=== PATIENT | male | born 1970 | race Two or more races ===

== ENCOUNTER → 2017-05-28 | Outpatient (REF) | payer BC, SELFPAY ==
[2017-05-28 17:24] LABS: ALBUMIN 3.8 GM/DL (3.2-5.2); ALBUMIN/GLOBULIN RATIO 1.12 (1.00-1.93); ALKALINE PHOSPHATASE 71 U/L (45-117); ALT/SGPT 63 U/L (12-78); ANION GAP 4 MEQ/L (8-16); AST/SGOT 29 U/L (15-37); BILIRUBIN,TOTAL 0.9 MG/DL (0.2-1.0); BLOOD UREA NITROGEN 17 MG/DL (7-18); CARBON DIOXIDE LEVEL 33 MEQ/L (21-32); CHLORIDE LEVEL 100 MEQ/L (98-107); CREATININE FOR GFR 0.86 MG/DL (0.70-1.30); FERRITIN 21 NG/ML (26-388); GLOMERULAR FILTRATION RATE > 60.0 (>60); GLUCOSE, FASTING 180 MG/DL (70-105); MAGNESIUM LEVEL 1.7 MG/DL (1.8-2.4); PERCENT SATURATION 18.7 % (19.7-50.0); POTASSIUM SERUM 4.1 MEQ/L (3.5-5.1); SODIUM LEVEL 137 MEQ/L (136-145); TOTAL IRON BINDING CAPACITY 315 UG/DL (250-450); TOTAL PROTEIN 7.2 GM/DL (6.4-8.2)
[2017-05-28 17:26] LABS: VITAMIN B12 LEVEL 425 PG/ML (247-911)
[2017-05-28 17:33] LABS: INR 0.94
[2017-05-28 18:05] LABS: BASO % 0.5 % (0.0-1.0); EOS # 0.2 10^3/uL (0.0-0.50); EOS % 2.4 % (0.0-3.0); IMMATURE GRANULOCYTE % 0.2 % (0-0); LYMPH % 23.5 % (24.0-44.0); MEAN CORPUSCULAR HEMOGLOBIN 29.4 pg (27.0-33.0); MEAN CORPUSCULAR HGB CONC 33.4 g/dl (32.0-36.5); MEAN CORPUSCULAR VOLUME 88.1 fl (80.0-96.0); MONO # 0.6 10^3/uL (0.0-0.8); MONO % 6.9 % (0.0-5.0); NEUTROPHILS # 5.5 10^3/uL (1.8-7.7); NEUTROPHILS % 66.5 % (36.0-66.0); PLATELET COUNT, AUTOMATED 219 10^3/uL (150-450); RED CELL DISTRIBUTION WIDTH 12.1 % (11.5-14.5); WHITE BLOOD COUNT 8.3 10^3/uL (4.0-10.0)
[2017-05-28 18:35] LABS: ADD MORPHOLOGY? NO
== END ==
LOC: M SFHCPLAZ 15:28
PROVIDERS: ATTEND Family Medicine
DX: E83.110 Hereditary hemochromatosis (principal); I10 Essential (primary) hypertension; E11.9 Type 2 diabetes mellitus without complications

== ENCOUNTER → 2017-07-18 | Outpatient (REF) | payer BC ==
[2017-07-18 18:59] LABS: BASO % 0.6 % (0.0-1.0); EOS # 0.2 10^3/uL (0.0-0.50); EOS % 2.5 % (0.0-3.0); IMMATURE GRANULOCYTE % 0.3 % (0-0); LYMPH # 1.5 10^3/uL (1.5-4.5); LYMPH % 22.3 % (24.0-44.0); MEAN CORPUSCULAR HEMOGLOBIN 29.6 pg (27.0-33.0); MEAN CORPUSCULAR HGB CONC 32.3 g/dl (32.0-36.5); MEAN CORPUSCULAR VOLUME 91.5 fl (80.0-96.0); MONO # 0.5 10^3/uL (0.0-0.8); MONO % 7.1 % (0.0-5.0); NEUTROPHILS # 4.6 10^3/uL (1.8-7.7); NEUTROPHILS % 67.2 % (36.0-66.0); PLATELET COUNT, AUTOMATED 223 10^3/uL (150-450); RED CELL DISTRIBUTION WIDTH 11.9 % (11.5-14.5); WHITE BLOOD COUNT 6.9 10^3/uL (4.0-10.0)
[2017-07-18 19:24] LABS: ALBUMIN 3.8 GM/DL (3.2-5.2); ALKALINE PHOSPHATASE 84 U/L (45-117); ALT/SGPT 73 U/L (12-78); ANION GAP 8 MEQ/L (8-16); AST/SGOT 33 U/L (7-37); BILIRUBIN,TOTAL 1.3 MG/DL (0.2-1.0); BLOOD UREA NITROGEN 19 MG/DL (7-18); CALCIUM LEVEL 9.2 MG/DL (8.5-10.1); CARBON DIOXIDE LEVEL 30 MEQ/L (21-32); CHLORIDE LEVEL 102 MEQ/L (98-107); CREATININE FOR GFR 0.94 MG/DL (0.70-1.30); FERRITIN 21 NG/ML (26-388); GLOMERULAR FILTRATION RATE > 60.0 (>60); GLUCOSE, FASTING 167 MG/DL (70-105); PERCENT SATURATION 30.9 % (19.7-50.0); POTASSIUM SERUM 4.4 MEQ/L (3.5-5.1); SODIUM LEVEL 140 MEQ/L (136-145); TOTAL IRON BINDING CAPACITY 288 UG/DL (250-450); TOTAL PROTEIN 7.6 GM/DL (6.4-8.2)
== END ==
LOC: M SFHCPLAZ 09:50
PROVIDERS: ATTEND Family Medicine
DX: E83.110 Hereditary hemochromatosis (principal)

== ENCOUNTER → 2017-11-26 | Outpatient (REF) | payer BC ==
[2017-11-26 12:10] LABS: BASO # 0.1 10^3/uL (0.0-0.2); BASO % 0.8 % (0.0-1.0); EOS # 0.3 10^3/uL (0.0-0.50); EOS % 5.4 % (0.0-3.0); HEMATOCRIT 42.7 % (42.0-52.0); HEMOGLOBIN 14.1 g/dl (14.0-18.0); IMMATURE GRANULOCYTE % 0.3 % (0-3.0); LYMPH # 1.8 10^3/uL (1.5-4.5); LYMPH % 27.6 % (24.0-44.0); MEAN CORPUSCULAR HEMOGLOBIN 28.4 pg (27.0-33.0); MEAN CORPUSCULAR VOLUME 86.1 fl (80.0-96.0); MONO # 0.5 10^3/uL (0.0-0.8); MONO % 8.5 % (0.0-5.0); NEUTROPHILS # 3.7 10^3/uL (1.8-7.7); NEUTROPHILS % 57.4 % (36.0-66.0); PLATELET COUNT, AUTOMATED 139 10^3/uL (150-450); RED BLOOD COUNT 4.96 10^6/uL (4.30-6.10); RED CELL DISTRIBUTION WIDTH 12.1 % (11.5-14.5); WHITE BLOOD COUNT 6.4 10^3/uL (4.0-10.0)
[2017-11-26 12:34] LABS: PTH INTACT 38.8 PG/ML (18.5-88.0); TOTAL 25(OH) VITAMIN D 20.4 NG/ML (30.0-100.0)
[2017-11-26 12:55] LABS: ALKALINE PHOSPHATASE 79 U/L (45-117); ALT/SGPT 72 U/L (12-78); AST/SGOT 38 U/L (7-37); BILIRUBIN,TOTAL 0.8 MG/DL (0.2-1.0); BLOOD UREA NITROGEN 19 MG/DL (7-18); CARBON DIOXIDE LEVEL 27 MEQ/L (21-32); CHLORIDE LEVEL 103 MEQ/L (98-107); CHOLESTEROL LEVEL 161 MG/DL (<200); CPK CREATINE PHOSPHOKINASE 103 U/L (39-308); CREATININE FOR GFR 1.01 MG/DL (0.70-1.30); FERRITIN 27 NG/ML (26-388); FREE T4 0.92 NG/DL (0.76-1.46); GLUCOSE, FASTING 196 MG/DL (70-100); IRON (FE) 64 UG/DL (65-175); SODIUM LEVEL 139 MEQ/L (136-145); TOTAL PROTEIN 7.5 GM/DL (6.4-8.2); TRIGLYCERIDES LEVEL 96 MG/DL (<150)
[2017-11-26 22:39] LABS: ALBUMIN 3.9 GM/DL (3.2-5.2); ALBUMIN/GLOBULIN RATIO 1.08 (1.00-1.93); ANION GAP 9 MEQ/L (8-16)
[2017-11-26 22:40] LABS: CHOLESTEROL RISK RATIO 4.128 (<5); HDL CHOLESTEROL 39 MG/DL (>40); LDL CHOLESTEROL 102.8 MG/DL (<100); NON-HDL-C 122 MG/DL; PERCENT SATURATION 22.2 % (19.7-50.0); TOTAL IRON BINDING CAPACITY 288 UG/DL (250-450)
== END ==
LOC: M SFHCPLAZ 08:03
DX: E83.110 Hereditary hemochromatosis (principal); E78.2 Mixed hyperlipidemia; E55.9 Vitamin D deficiency, unspecified
CPT/HCPCS: 82550

== ENCOUNTER → 2018-04-23 | Outpatient (REF) | payer BC ==
[2018-04-23 11:40] LABS: FERRITIN 24 NG/ML (26-388)
== END ==
LOC: M SFHCPLAZ 08:50
DX: E11.9 Type 2 diabetes mellitus without complications (principal); E83.110 Hereditary hemochromatosis
CPT/HCPCS: 82728

== ENCOUNTER → 2018-06-05 | Outpatient (CLI) | payer BC ==
[2018-06-05 09:34] LABS: BASO % 0.7 % (0.0-1.0); EOS # 0.4 10^3/uL (0.0-0.50); EOS % 7.6 % (0.0-3.0); HEMATOCRIT 40.4 % (42.0-52.0); HEMOGLOBIN 13.9 g/dl (13.5-17.5); IMMATURE GRANULOCYTE % 0.2 % (0-3.0); LYMPH # 1.6 10^3/uL (1.5-4.5); LYMPH % 27.4 % (24.0-44.0); MEAN CORPUSCULAR HEMOGLOBIN 30.5 pg (27.0-33.0); MEAN CORPUSCULAR HGB CONC 34.4 g/dl (32.0-36.5); MEAN CORPUSCULAR VOLUME 88.6 fl (80.0-96.0); MONO # 0.4 10^3/uL (0.0-0.8); MONO % 7.2 % (0.0-5.0); NEUTROPHILS # 3.2 10^3/uL (1.8-7.7); NEUTROPHILS % 56.9 % (36.0-66.0); PLATELET COUNT, AUTOMATED 159 10^3/uL (150-450); RED BLOOD COUNT 4.56 10^6/uL (4.30-6.10); RED CELL DISTRIBUTION WIDTH 11.6 % (11.5-14.5); WHITE BLOOD COUNT 5.7 10^3/uL (4.0-10.0)
[2018-06-05 10:06] LABS: ALBUMIN 3.8 GM/DL (3.2-5.2); ALBUMIN/GLOBULIN RATIO 1.12 (1.00-1.93); ALKALINE PHOSPHATASE 79 U/L (45-117); ALT/SGPT 47 U/L (12-78); ANION GAP 4 MEQ/L (8-16); AST/SGOT 23 U/L (7-37); BILIRUBIN,TOTAL 0.9 MG/DL (0.2-1.0); BLOOD UREA NITROGEN 13 MG/DL (7-18); C REACTIVE PROTEIN QUANTITATIV < 0.30 MG/DL (0.00-0.30); CARBON DIOXIDE LEVEL 31 MEQ/L (21-32); CHLORIDE LEVEL 105 MEQ/L (98-107); CHOLESTEROL LEVEL 128 MG/DL (<200); CHOLESTEROL RISK RATIO 3.368 (<5); CPK CREATINE PHOSPHOKINASE 115 U/L (39-308); CREATININE FOR GFR 0.92 MG/DL (0.70-1.30); FERRITIN 32 NG/ML (26-388); FREE T4 0.94 NG/DL (0.76-1.46); GLOMERULAR FILTRATION RATE > 60.0 (>60); GLUCOSE, FASTING 171 MG/DL (70-100); HDL CHOLESTEROL 38 MG/DL (>40); IRON (FE) 76 UG/DL (65-175); LDL CHOLESTEROL 69 MG/DL (<100); NON-HDL-C 90 MG/DL; PERCENT SATURATION 28.3 % (19.7-50.0); POTASSIUM SERUM 4.3 MEQ/L (3.5-5.1); SODIUM LEVEL 140 MEQ/L (136-145); THYROID STIMULATING HORMONE 0.824 uIU/ML (0.358-3.740); TOTAL IRON BINDING CAPACITY 269 UG/DL (250-450); TOTAL PROTEIN 7.2 GM/DL (6.4-8.2); TRIGLYCERIDES LEVEL 107 MG/DL (<150)
[2018-06-07 11:21] LABS: TOTAL 25(OH) VITAMIN D 31.1 NG/ML (30.0-100.0)
[2018-06-07 11:22] LABS: PTH INTACT 38.1 PG/ML (18.5-88.0)
== END ==
LOC: M LAB 08:52
DX: E83.110 Hereditary hemochromatosis (principal); E78.2 Mixed hyperlipidemia
CPT/HCPCS: 82550

== ENCOUNTER → 2018-10-29 | Outpatient (REF) | payer OTHER ==
[2018-10-29 12:28] LABS: APPEARANCE, URINE CLEAR (CLEAR); BACTERIA, URINE AUTO NEGATIVE (NEGATIVE); BILIRUBIN, URINE AUTO NEGATIVE (NEGATIVE); BLOOD, URINE BLOOD NEGATIVE (NEGATIVE); COLOR, URINE YELLOW (YELLOW); GLUCOSE, URINE (UA) AUTO NEGATIVE (NEGATIVE); KETONE, URINE AUTO NEGATIVE (NEGATIVE); LEUKOCYTE ESTERASE, URINE AUTO NEGATIVE (NEGATIVE); MUCUS, URINE SMALL (NEGATIVE); NITRITE, URINE AUTO NEGATIVE (NEGATIVE); PROTEIN, URINE AUTO NEGATIVE (NEGATIVE); RBC, URINE AUTO 1 /HPF (0-3); SPECIFIC GRAVITY URINE AUTO 1.017 (1.002-1.035); SQUAMOUS EPITHELIAL CELL UR AU 0 /HPF (0-6); UROBILINOGEN, URINE AUTO 0.2 mg/dL (0.0-2.0); WBC, URINE AUTO 0 /HPF (0-3)
[2018-10-29 12:41] LABS: INR 0.95; PARTIAL THROMBOPLASTIN TIME 28.2 SECONDS (25.4-37.6); PROTHROMBIN TIME 12.8 SECONDS (12.1-14.4)
[2018-10-29 13:01] LABS: ALBUMIN 4.1 GM/DL (3.2-5.2); ALT/SGPT 47 U/L (12-78); BILIRUBIN,TOTAL 1.2 MG/DL (0.2-1.0); BLOOD UREA NITROGEN 17 MG/DL (7-18); CALCIUM LEVEL 9.4 MG/DL (8.5-10.1); CARBON DIOXIDE LEVEL 28 MEQ/L (21-32); CHLORIDE LEVEL 101 MEQ/L (98-107); CREATININE FOR GFR 0.88 MG/DL (0.70-1.30); GLOMERULAR FILTRATION RATE > 60.0 (>60); GLUCOSE, FASTING 107 MG/DL (70-100); MAGNESIUM LEVEL 1.9 MG/DL (1.8-2.4); POTASSIUM SERUM 4.1 MEQ/L (3.5-5.1); SODIUM LEVEL 139 MEQ/L (136-145); TOTAL PROTEIN 7.7 GM/DL (6.4-8.2); VITAMIN B12 LEVEL 610 PG/ML (247-911)
[2018-10-29 13:16] LABS: HEMOGLOBIN A1c 6.1 %
== END ==
LOC: M SFHCPLAZ 09:11
PROVIDERS: ATTEND Family Medicine
DX: E83.110 Hereditary hemochromatosis (principal); I10 Essential (primary) hypertension; E11.9 Type 2 diabetes mellitus without complications

== ENCOUNTER 2018-12-01 06:00 | Day surgery (SDC) | payer OTHER ==
[~2018-12-01] VITALS: Ht 176.5 cm; Wt 103.0 kg
[~2018-12-01 06:00] MED LIST: ASPI1TAB PO; ATOR80TA59 PO; FLUO40CA PO; GLYB5TA PO; JANU100T PO; LISI20TA3 PO; METF10004 PO; MOME50SP; VITA100067 PO
[2018-12-01] MEDS ORDERED: LIDOCAINE 2% W/EPIN INJ 20ML **PRES FREE As Ordered ONE (06:37)
[2018-12-01] MEDS ORDERED: POVIDONE-IODINE 5% OPHTH PREP SOL 30ML As Ordered ONE (06:37)
[2018-12-01] MEDS ORDERED: ERYTHROMYCIN OPHTH OINT As Ordered ONE (06:37)
[2018-12-01] MEDS ORDERED: LR 1,000 ML IV ONE (07:00)
[2018-12-01] MEDS ORDERED: LIDOCAINE 3.5 % 1ML OPHTH TOPICAL GEL OU ONE (07:00)
[2018-12-01] MEDS ORDERED: MIDAZOLAM INJ 2 MG/2 ML VIAL (J2250) As Ordered ONE (07:11)
[2018-12-01] MEDS ORDERED: fentaNYL 100 MCG/2 ML INJECTION (J3010) As Ordered ONE (07:11)
[2018-12-01] MEDS ORDERED: PROPOFOL 200 MG/20 ML VIAL As Ordered ONE (07:11)
[2018-12-01] MEDS ORDERED: LIDOCAINE 2% INJ 100 MG/5 ML SDV (FOR ANES.) As Ordered ONE (07:11)
[2018-12-01 08:18] VITALS: BP 119/72
--- NOTE | 2018-12-01 16:13 | RO ---
DATE OF PROCEDURE: 12/01/2018 PREOPERATIVE DIAGNOSIS: Three small papillomatous lesions right lower lid, not involving the lid margin. POSTOPERATIVE DIAGNOSIS: Three small papillomatous lesions right lower lid, not involving the lid margin, status post simple excision. PROCEDURE: SURGEON: Drew Garzon Jr., DO, FACS [employer] COORDINATOR: ANESTHESIA: Local 2% lidocaine with epinephrine, and sedation by anesthesia. ESTIMATED BLOOD LOSS: Minimal. COMPLICATIONS: None. PROCEDURE IN DETAIL: This gentleman is very anxious. He was brought to [facility] so I had good anesthesia to sedate him to allow the excision of these three small, less than 7 mm, large papillomatous lesions of his right lower lid. After obtaining informed consent, the patient was taken to the operating room where a time-out was performed confirming the correct patient and operative site. The anesthesiologist gave some sedation and the lesions were injected with 2% lidocaine with epinephrine and excised simply with scissors and cautery was applied to the wounds. Antibiotic ointment was applied to the wounds and the patient returned to recovery area in excellent condition. He will followup in the office.
== END 2018-12-01 08:18 | disposition home or self-care (01) ==
LOC: M SDC 06:00
PROVIDERS: ATTEND Ophthalmology
DX: D23.111 Other benign neoplasm of skin of right upper eyelid, including canthus (principal); I10 Essential (primary) hypertension; E11.9 Type 2 diabetes mellitus without complications; E83.110 Hereditary hemochromatosis; E78.2 Mixed hyperlipidemia; R06.83 Snoring; G47.33 Obstructive sleep apnea (adult) (pediatric); B35.6 Tinea cruris; F32.9 Major depressive disorder, single episode, unspecified; M17.0 Bilateral primary osteoarthritis of knee; J30.89 Other allergic rhinitis; E55.9 Vitamin D deficiency, unspecified; K76.0 Fatty (change of) liver, not elsewhere classified; E80.4 Gilbert syndrome; Z88.1 Allergy status to other antibiotic agents; Z91.013 Allergy to seafood; Z79.899 Other long term (current) drug therapy; Z79.82 Long term (current) use of aspirin; Z79.84 Long term (current) use of oral hypoglycemic drugs
CPT/HCPCS: 11441; 88305; J2250; J3010

== ENCOUNTER → 2018-12-27 | Outpatient (CLI) | payer OTHER ==
[~2018-12-27] MED LIST changes: -ASPI1TAB PO; +ASPI81TA26 PO
--- NOTE | 2018-12-27 08:05 | REP ---
Clinical: Hemochromatosis. Comparison: 09/09/2017. Technique: Real time carney scale ultrasound examination using curved array transducer. Findings: The liver demonstrates mild diffuse fatty infiltration without focal hepatic lesion identified or evidence for hepatomegaly. The pancreas is incompletely evaluated due to interposed bowel gas but the visualized portions appear normal. Gallbladder and biliary system are unremarkable. No gallstones, wall thickening, or pericholecystic fluid is appreciated. The common bile duct measures 2.2 mm diameter. The right kidney is normal in reniform shape without hydronephrosis and measures 10.8 x 6.3 x 6.4 cm. No ascites. Impression: Hepatosteatosis. Electronically Signed by Jeremie Dooley MD 12/27/2018 07:56 A
== END ==
LOC: M RAD 07:10
PROVIDERS: ATTEND Family Medicine
DX: E83.110 Hereditary hemochromatosis (principal); K76.0 Fatty (change of) liver, not elsewhere classified

== ENCOUNTER → 2019-04-21 | Outpatient (REF) | payer OTHER ==
[~2019-04-21] MED LIST changes: +LISI20TA20 PO; -LISI20TA3 PO
[2019-04-21 12:05] LABS: APPEARANCE, URINE CLEAR (CLEAR); BACTERIA, URINE AUTO NEGATIVE (NEGATIVE); BILIRUBIN, URINE AUTO NEGATIVE (NEGATIVE); BLOOD, URINE BLOOD NEGATIVE (NEGATIVE); COLOR, URINE YELLOW (YELLOW); GLUCOSE, URINE (UA) AUTO NEGATIVE (NEGATIVE); KETONE, URINE AUTO NEGATIVE (NEGATIVE); LEUKOCYTE ESTERASE, URINE AUTO NEGATIVE (NEGATIVE); MUCUS, URINE SMALL (NEGATIVE); NITRITE, URINE AUTO NEGATIVE (NEGATIVE); PROTEIN, URINE AUTO NEGATIVE (NEGATIVE); RBC, URINE AUTO 2 /HPF (0-3); SPECIFIC GRAVITY URINE AUTO 1.021 (1.002-1.035); SQUAMOUS EPITHELIAL CELL UR AU 0 /HPF (0-6); UROBILINOGEN, URINE AUTO 0.2 mg/dL (0.0-2.0); WBC, URINE AUTO 1 /HPF (0-3)
[2019-04-21 12:07] LABS: BASO # 0.1 10^3/uL (0.0-0.2); BASO % 0.9 % (0.0-1.0); EOS # 0.3 10^3/uL (0.0-0.50); EOS % 5.8 % (0.0-3.0); HEMATOCRIT 42.3 % (42.0-52.0); HEMOGLOBIN 14.4 g/dl (13.5-17.5); LYMPH # 1.5 10^3/uL (1.5-4.5); LYMPH % 27.9 % (24.0-44.0); MEAN CORPUSCULAR HEMOGLOBIN 31.6 pg (27.0-33.0); MEAN CORPUSCULAR VOLUME 92.8 fl (80.0-96.0); MONO # 0.5 10^3/uL (0.0-0.8); MONO % 9.3 % (0.0-5.0); NEUTROPHILS % 55.9 % (36.0-66.0); PLATELET COUNT, AUTOMATED 168 10^3/uL (150-450); RED BLOOD COUNT 4.56 10^6/uL (4.30-6.10); WHITE BLOOD COUNT 5.4 10^3/uL (4.0-10.0)
[2019-04-21 12:43] LABS: BILIRUBIN,DIRECT 0.2 MG/DL (0.0-0.2); CHOLESTEROL RISK RATIO 3.5 (<5); FREE T4 0.95 NG/DL (0.76-1.46); PERCENT SATURATION 34.3 % (19.7-50.0); THYROID STIMULATING HORMONE 1.31 uIU/ML (0.358-3.740)
[2019-04-21 12:48] LABS: MALB URINE SIEMENS 10.4 MG/L; MAU/CREAT RATIO 6.9 MCG/MG (0.0-30.0)
[2019-04-21 13:15] LABS: HEMOGLOBIN A1c 7.5 %
== END ==
LOC: M SFHCPLAZ 08:43
PROVIDERS: ATTEND Family Medicine
DX: Z12.5 Encounter for screening for malignant neoplasm of prostate (principal); E80.4 Gilbert syndrome; E83.110 Hereditary hemochromatosis; E11.9 Type 2 diabetes mellitus without complications

== ENCOUNTER → 2019-05-23 | Outpatient (REF) | payer OTHER ==
[2019-05-23 16:35] LABS: C REACTIVE PROTEIN QUANTITATIV < 0.30 MG/DL (0.00-0.30); CPK CREATINE PHOSPHOKINASE 138 U/L (39-308); MAGNESIUM LEVEL 1.7 MG/DL (1.8-2.4); RHEUMATOID FACTOR QUANT < 10.0 IU/ML (<15.0)
[2019-05-23 16:49] LABS: BASO % 0.5 % (0.0-1.0); EOS # 0.2 10^3/uL (0.0-0.5); HEMATOCRIT 45.5 % (42.0-52.0); HEMOGLOBIN 15.8 g/dl (13.5-17.5); LYMPH # 1.7 10^3/uL (1.5-5.0); LYMPH % 21.5 % (24.0-44.0); MEAN CORPUSCULAR HEMOGLOBIN 31.9 pg (27.0-33.0); MEAN CORPUSCULAR HGB CONC 34.7 g/dl (32.0-36.5); MEAN CORPUSCULAR VOLUME 91.9 fl (80.0-96.0); MONO # 0.7 10^3/uL (0.0-0.8); MONO % 8.1 % (0.0-5.0); NEUTROPHILS # 5.4 10^3/uL (1.5-8.5); NEUTROPHILS % 66.7 % (36.0-66.0); PLATELET COUNT, AUTOMATED 216 10^3/uL (150-450); RED BLOOD COUNT 4.95 10^6/uL (4.30-6.10); WHITE BLOOD COUNT 8.1 10^3/uL (4.0-10.0)
[2019-05-23 17:32] LABS: ERYTHROCYTE SEDIMENTATION RATE 26 mm/hr (0-15)
[2019-05-24 10:22] LABS: DRVV SCREEN 37.9 SEC; PTT LUPUS TYPE ANTICOAG SCREEN 0.9 (0-1.2)
[2019-05-26 00:08] LABS: CYCLIC CITRULLINATED PEPTIDE 7 units (0-19); Lyme Disease IgG/IgM Antibodie <0.91 ISR (0.00-0.90); Lyme Disease IgM Ab Quantitati <0.80 index (0.00-0.79)
== END ==
LOC: M SFHCPLAZ 12:11
PROVIDERS: ATTEND Physician Assistant Medical
DX: M79.10 Myalgia, unspecified site (principal); M25.561 Pain in right knee

== ENCOUNTER → 2019-06-22 | Outpatient (CLI) | payer OTHER ==
--- NOTE | 2019-06-23 19:09 | SLEEPHOME ---
DATE OF PROCEDURE: 06/22/2019 ORDERED BY: Vane Chapman home sleep testing was performed due to concern for the obstructive sleep apnea syndrome. For testing a Nox T3 respiratory monitoring system was used. Continuous record made of pulse, oxygen saturation, airflow, chest, abdominal strain and body position. 11 hours and 5 minutes of data were reviewed. There were 5 hours and 29 minutes marked as time in bed. During the interval marked time in bed, there were 41 respiratory events identified of 10 seconds in duration or greater for a respiratory event index of 7.5. The events were primarily obstructive hypopneas. Baseline pulse rate and saturation data were lost as the probe became dislodged early in the study. Testing was performed in both the supine and nonsupine positions. IMPRESSION: Abnormal home sleep testing with repetitive respiratory events and a respiratory event index of 7.5 is consistent with the obstructive sleep apnea syndrome. RECOMMENDATIONS: As the events identified were associated with the supine posture, sleep position retraining for avoidance of the supine posture may be sufficient. If sleep symptoms persist, the patient should be referred for a formal sleep evaluation.
== END ==
LOC: M SLEEP HO 10:29
PROVIDERS: ATTEND Physician Assistant Medical
DX: G47.33 Obstructive sleep apnea (adult) (pediatric) (principal)

== ENCOUNTER → 2019-09-19 | Outpatient (CLI) | payer OTHER ==
[2019-09-19 13:40] LABS: BASO % 0.6 % (0.0-1.0); EOS # 0.3 10^3/uL (0.0-0.5); EOS % 4.6 % (0.0-3.0); HEMATOCRIT 46.3 % (42.0-52.0); HEMOGLOBIN 15.4 g/dl (13.5-17.5); LYMPH # 1.7 10^3/uL (1.5-5.0); MEAN CORPUSCULAR HEMOGLOBIN 30.9 pg (27.0-33.0); MEAN CORPUSCULAR HGB CONC 33.3 g/dl (32.0-36.5); MONO # 0.6 10^3/uL (0.0-0.8); MONO % 8.3 % (0.0-5.0); NEUTROPHILS # 4.1 10^3/uL (1.5-8.5); NEUTROPHILS % 61.2 % (36.0-66.0); PLATELET COUNT, AUTOMATED 196 10^3/uL (150-450); RED BLOOD COUNT 4.98 10^6/uL (4.30-6.10); WHITE BLOOD COUNT 6.8 10^3/uL (4.0-10.0)
[2019-09-19 14:13] LABS: ALBUMIN 3.9 GM/DL (3.2-5.2); ALT/SGPT 79 U/L (12-78); BILIRUBIN,TOTAL 1.4 MG/DL (0.2-1.0); BLOOD UREA NITROGEN 14 MG/DL (7-18); CALCIUM LEVEL 9.5 MG/DL (8.5-10.1); CARBON DIOXIDE LEVEL 29 MEQ/L (21-32); CHLORIDE LEVEL 103 MEQ/L (98-107); CREATININE FOR GFR 1.02 MG/DL (0.70-1.30); FERRITIN 44 NG/ML (26-388); GLOMERULAR FILTRATION RATE > 60.0 (>60); GLUCOSE, FASTING 168 MG/DL (70-100); POTASSIUM SERUM 4.6 MEQ/L (3.5-5.1); SODIUM LEVEL 138 MEQ/L (136-145); TOTAL PROTEIN 7.6 GM/DL (6.4-8.2)
[2019-09-19 14:30] LABS: HEMOGLOBIN A1c 7.5 %
== END ==
LOC: M PLALAB 09:48
PROVIDERS: ATTEND Family Medicine
DX: E11.9 Type 2 diabetes mellitus without complications (principal)

== ENCOUNTER → 2019-09-23 | Outpatient (CLI) | payer OTHER ==
[2019-09-23 13:46] LABS: HEMATOCRIT 46.6 % (42.0-52.0)
[2019-09-23 14:00] LABS: INR 0.99; PROTHROMBIN TIME 12.8 SECONDS (11.8-14.0)
[2019-09-23 14:01] LABS: PARTIAL THROMBOPLASTIN TIME 27.6 SECONDS (25.0-38.4)
[2019-09-23 14:20] LABS: ALBUMIN 4.4 GM/DL (3.2-5.2); BLOOD UREA NITROGEN 19 MG/DL (7-18); C REACTIVE PROTEIN QUANTITATIV < 0.30 MG/DL (0.00-0.30); CALCIUM LEVEL 9.5 MG/DL (8.5-10.1); CARBON DIOXIDE LEVEL 31 MEQ/L (21-32); CHLORIDE LEVEL 97 MEQ/L (98-107); CPK CREATINE PHOSPHOKINASE 173 U/L (39-308); CREATININE FOR GFR 1.04 MG/DL (0.70-1.30); GLOMERULAR FILTRATION RATE > 60.0 (>60); GLUCOSE, FASTING 278 MG/DL (70-100); MAGNESIUM LEVEL 1.7 MG/DL (1.8-2.4); PHOSPHORUS LEVEL 2.6 MG/DL (2.5-4.9); POTASSIUM SERUM 3.9 MEQ/L (3.5-5.1); SODIUM LEVEL 133 MEQ/L (136-145)
[2019-09-23 14:29] LABS: VITAMIN B12 LEVEL 421 PG/ML (247-911)
== END ==
LOC: M PLALAB 09:52
PROVIDERS: ATTEND Family Medicine
DX: K76.0 Fatty (change of) liver, not elsewhere classified (principal); R20.3 Hyperesthesia

== ENCOUNTER → 2019-10-05 | Outpatient (CLI) | payer OTHER ==
[~2019-10-05] MED LIST changes: +PROHANCE 279.3MG/ML 15ML VIAL (A9576) As Ordered ONE; +PROHANCE 279.3MG/ML 5ML VIAL (A9576) As Ordered ONE
--- NOTE | 2019-10-05 19:24 | REPVR ---
PROCEDURE INFORMATION: Exam: MR Head Without and With Contrast Exam date and time: 10/05/2019 10:30 AM Age: 48 years old Clinical indication: Other: Involuntary movements; Additional info: Hyperesthesia TECHNIQUE: Imaging protocol: MR of the head without and with intravenous contrast. Contrast material: PROHANCE; Contrast volume: 20 ml; Contrast route: IV; COMPARISON: No relevant prior studies available. FINDINGS: Brain: Increased signal intensity is identified on diffusion involving the right cerebellar tonsil. No abnormal signal intensity is identified on the remaining sequences, suggestive of artifact. There is no definitive restricted diffusion within the brain to suggest an acute infarct. There are scattered foci of FLAIR hyperintensity within the cerebral white matter. There is no mass effect or restricted diffusion associated with these foci. This white matter disease is nonspecific as to etiology. Possible etiologies include chronic small vessel ischemic disease, foci of demyelination, post-traumatic change, and migraine headaches, as well as additional infectious, inflammatory and autoimmune etiologies. No abnormally enhancing intracranial mass is visualized. No cerebral edema. Ventricles: No ventriculomegaly. Bones/joints: Unremarkable, as visualized. Soft tissues: There is a linear focus of hypointensity within the right posterior scalp, suggestive of scar tissue. Sinuses: Mild mucosal thickening of the bilateral maxillary sinuses, with mucous retention cysts or polyps in the left maxillary sinus. Minimal mucosal thickening of the sphenoid sinuses and ethmoid air cells bilaterally. Mastoid air cells: Minimal complex effusions within the mastoid air cells bilaterally. Orbits: No acute abnormality visualized. IMPRESSION: 1. There is no definitive restricted diffusion within the brain to suggest an acute infarct. 2. There are scattered foci of FLAIR hyperintensity within the cerebral white matter. This white matter disease is nonspecific as to etiology, as detailed above. 3. Paranasal sinus disease. 4. Additional findings described above. Electronically signed by: Filemon Lee On 10/05/2019 19:23:44 PM
== END ==
LOC: M RAD 09:09
PROVIDERS: ATTEND Family Medicine
DX: R20.3 Hyperesthesia (principal)
CPT/HCPCS: 70553; A9576

== ENCOUNTER → 2019-10-11 | Outpatient (REF) | payer OTHER ==
[~2019-10-11] MED LIST changes: -PROHANCE 279.3MG/ML 15ML VIAL (A9576) As Ordered ONE; -PROHANCE 279.3MG/ML 5ML VIAL (A9576) As Ordered ONE
[2019-10-11 14:44] LABS: RHEUMATOID FACTOR QUANT < 10.0 IU/ML (<15.0); TOTAL PROTEIN 7.7 GM/DL (6.4-8.2)
[2019-10-11 14:52] LABS: TOTAL 25(OH) VITAMIN D 37.4 NG/ML (30.0-100.0)
[2019-10-13 11:58] LABS: ALBUMIN 4.47 GM/DL (3.29-5.55); ALBUMIN % 58.1 % (55.8-66.1); ALPHA-1-GLOBULIN % 3.9 % (2.9-4.9); ALPHA-2-GLOBULINS 0.84 GM/DL (0.42-0.99); ALPHA-2-GLOBULINS % 10.9 % (7.1-11.8); BETA-1-GLOBULINS 0.49 GM/DL (0.28-0.60); BETA-1-GLOBULINS % 6.4 % (4.7-7.2); BETA-2-GLOBULINS 0.47 GM/DL (0.19-0.55); BETA-2-GLOBULINS % 6.1 % (3.2-6.5); GAMMA GLOBULIN % 14.6 % (11.1-18.8); GAMMA GLOBULINS 1.12 GM/DL (0.65-1.58)
== END ==
LOC: M LABNEURO 09:45
PROVIDERS: ATTEND Psychiatry & Neurology Neurology
DX: G62.9 Polyneuropathy, unspecified (principal); G35 Multiple sclerosis

== ENCOUNTER → 2019-10-13 | Outpatient (REF) | payer OTHER ==
[2019-10-13 18:06] LABS: BLOOD UREA NITROGEN 21 MG/DL (7-18); CREATININE FOR GFR 1.13 MG/DL (0.70-1.30); GLOMERULAR FILTRATION RATE > 60.0 (>60)
== END ==
LOC: M LABNEURO 16:56
PROVIDERS: ATTEND Psychiatry & Neurology Neurology
DX: I10 Essential (primary) hypertension (principal)

== ENCOUNTER 2019-10-19 17:47 | Emergency (ER) | payer OTHER ==
[~2019-10-19] VITALS: Ht 175.3 cm; Wt 108.1 kg
[2019-10-19] MEDS ORDERED: GABA-843 PO (18:00)
[2019-10-19] MEDS ORDERED: MAGN400T3 PO (18:00)
[2019-10-19] MEDS ORDERED: ALOG25TA PO (18:01)
[2019-10-19 18:57] LABS: BASO # 0.1 10^3/uL (0.0-0.2); BASO % 0.7 % (0.0-1.0); EOS # 0.4 10^3/uL (0.0-0.5); EOS % 4.8 % (0.0-3.0); HEMATOCRIT 43.6 % (42.0-52.0); HEMOGLOBIN 15.3 g/dl (13.5-17.5); LYMPH # 2.6 10^3/uL (1.5-5.0); LYMPH % 32.4 % (24.0-44.0); MEAN CORPUSCULAR HGB CONC 35.1 g/dl (32.0-36.5); MEAN CORPUSCULAR VOLUME 88.3 fl (80.0-96.0); MONO # 0.6 10^3/uL (0.0-0.8); MONO % 7.6 % (0.0-5.0); NEUTROPHILS # 4.4 10^3/uL (1.5-8.5); NEUTROPHILS % 54.3 % (36.0-66.0); PLATELET COUNT, AUTOMATED 219 10^3/uL (150-450); RED BLOOD COUNT 4.94 10^6/uL (4.30-6.10); WHITE BLOOD COUNT 8.1 10^3/uL (4.0-10.0)
[2019-10-19 19:19] LABS: BLOOD UREA NITROGEN 14 MG/DL (7-18); CALCIUM LEVEL 9.5 MG/DL (8.5-10.1); CARBON DIOXIDE LEVEL 29 MEQ/L (21-32); CHLORIDE LEVEL 102 MEQ/L (98-107); CREATININE FOR GFR 0.91 MG/DL (0.70-1.30); GLOMERULAR FILTRATION RATE > 60.0 (>60); GLUCOSE, FASTING 167 MG/DL (70-100); POTASSIUM SERUM 3.8 MEQ/L (3.5-5.1); SODIUM LEVEL 136 MEQ/L (136-145)
[2019-10-19 20:45] VITALS: BP 142/83
--- NOTE | 2019-10-20 09:52 | CR ---
DATE OF CONSULTATION: 10/19/2019 INDICATION: Leg weakness and thoracic disc herniation. HISTORY OF PRESENT ILLNESS: Higinio Lara is a 48-year-old gentleman that was sent to the emergency department tonight by his neurologist. He is being worked up for multiple sclerosis. However, recent MRI supposedly shows a thoracic disc herniation. The patient did bring a disc. The images were unfortunate available, neither was the report. The emergency room (ER) physician discussed the case with me and I agree to perform a consultation. So in talking to the patient he states that he had started having some numbness, tingling in his legs and some balance issues in the summer of 2018. Since May, symptoms have worsened. The numbness, tingling is now extending down distally. The patient specifically denies any urine or bowel incontinence. Denies saddle anesthesia. For the patient's full past medical history, past surgical history, medications, allergies, social history and review of systems please see the ER intake form. Physical exam reveals a gentleman in no distress. Alert and oriented times three. He is pleasant to talk to. Cardiovascular: 2+ PT pulse. Pulmonary: Nonlabored breathing. Musculoskeletal: Patient has 5/5 EHL, FHL, TA, GS and hip flexors. The patient reports mild paresthesias but still intact sensation to light touch in L2-S1 dermatomes. Intact at least 1+ Achilles reflexes. IMAGING STUDIES: The patient had a disc that had an MRI of his cervical spine and thoracic spine from [facility]. Images were not available, though for review, neither was the report. ASSESSMENT/PLAN: Higinio Lara is a 48-year-old gentleman who supposedly has a thoracic spine herniation. He has numbness and tingling in his lower extremities but no weakness. At this point, there is a discussion between the patient, ER physician and myself about whether the patient should be admitted. Certainly, that decision would be up to the ER physician, However from an orthopedic spine standpoint, if there were a large thoracic disc herniation one would expect significant weakness in the lower extremities. There are no signs and symptoms of cauda equina syndrome. So from the orthopedic spine standpoint, there is no indication for admission. However, ultimate decision on whether to admit or at discharge for outpatient followup will be up to the ER physician. I was not involved in the conversation between the neurologist and the ER physician. The patient can definitely be seen at the [facility] office. He can see Jeovanny or Chris, two of our physicians assistants and they can review the imaging, perform further evaluation and make further recommendations. Should the patient experience any progressive numbness, tingling, urine or bowel incontinence, he must immediately return to the ER.
== END 2019-10-19 20:48 | disposition home or self-care (01) ==
LOC: M ED 17:47
DX: M51.34 Other intervertebral disc degeneration, thoracic region (principal); E11.9 Type 2 diabetes mellitus without complications; I10 Essential (primary) hypertension; E78.5 Hyperlipidemia, unspecified; D33.2 Benign neoplasm of brain, unspecified; Z88.8 Allergy status to other drugs, medicaments and biological substances; Z91.013 Allergy to seafood; Z79.82 Long term (current) use of aspirin; Z79.84 Long term (current) use of oral hypoglycemic drugs; Z79.899 Other long term (current) drug therapy

== ENCOUNTER → 2020-02-02 | Outpatient (REF) | payer OTHER ==
[~2020-02-02] MED LIST changes: +ALOG25TA PO; +GABA-843 PO; +MAGN400T3 PO
[2020-02-02 12:15] LABS: ALBUMIN 3.5 GM/DL (3.2-5.2); ALT/SGPT 68 U/L (12-78); BASO # 0.1 10^3/uL (0.0-0.2); BASO % 1.1 % (0.0-1.0); BILIRUBIN,TOTAL 1.1 MG/DL (0.2-1.0); BLOOD UREA NITROGEN 14 MG/DL (7-18); CARBON DIOXIDE LEVEL 30 MEQ/L (21-32); CHLORIDE LEVEL 103 MEQ/L (98-107); CHOLESTEROL LEVEL 131 MG/DL (<200); CHOLESTEROL RISK RATIO 4.093 (<5); CREATININE FOR GFR 0.91 MG/DL (0.70-1.30); EOS # 0.2 10^3/uL (0.0-0.5); FERRITIN 29 NG/ML (26-388); GLOMERULAR FILTRATION RATE > 60.0 (>56); GLUCOSE, FASTING 184 MG/DL (70-100); HDL CHOLESTEROL 32 MG/DL (>40); HEMATOCRIT 41.5 % (42.0-52.0); HEMOGLOBIN 14.2 g/dl (13.5-17.5); LDL CHOLESTEROL 80 MG/DL (<100); LYMPH # 1.8 10^3/uL (1.5-5.0); LYMPH % 32.5 % (24.0-44.0); MEAN CORPUSCULAR HGB CONC 34.2 g/dl (32.0-36.5); MEAN CORPUSCULAR VOLUME 90.6 fl (80.0-96.0); MONO # 0.5 10^3/uL (0.0-0.8); MONO % 8.9 % (0.0-5.0); NEUTROPHILS % 53.3 % (36.0-66.0); NON-HDL-C 99 MG/DL; PLATELET COUNT, AUTOMATED 184 10^3/uL (150-450); POTASSIUM SERUM 4.2 MEQ/L (3.5-5.1); RED BLOOD COUNT 4.58 10^6/uL (4.30-6.10); SODIUM LEVEL 140 MEQ/L (136-145); TOTAL PROTEIN 6.9 GM/DL (6.4-8.2); TRIGLYCERIDES LEVEL 97 MG/DL (<150); WHITE BLOOD COUNT 5.5 10^3/uL (4.0-10.0)
[2020-02-02 12:20] LABS: TOTAL 25(OH) VITAMIN D 43.2 NG/ML (30.0-100.0)
[2020-02-02 13:08] LABS: HEMOGLOBIN A1c 8.4 %
== END ==
LOC: M PLALAB 08:23
PROVIDERS: ATTEND Family Medicine
DX: E11.9 Type 2 diabetes mellitus without complications (principal); Z12.5 Encounter for screening for malignant neoplasm of prostate; E55.9 Vitamin D deficiency, unspecified

== ENCOUNTER → 2020-02-17 | Outpatient (CLI) | payer OTHER ==
[~2020-02-17] MED LIST changes: +GABA-282 PO; -GABA-843 PO; -GLYB5TA PO; +GLYB5TAB6 PO
--- NOTE | 2020-02-18 06:57 | EEG ---
DATE OF PROCEDURE: 02/17/2020 DIAGNOSIS: Myoclonus. EEG #: [id number] REFERRING PHYSICIAN: Dr. Marco Wilburn HISTORY: The patient is a 49-year-old male with episodes of spontaneous frequent muscle and body twitching for 1 year. He is currently taking aspirin, metformin, glimepiride, Prozac, etc. TECHNICAL DESCRIPTION This digital EEG was recorded by 21 scalp, ear and two EKG electrodes and was reviewed in bipolar and referential montages following reformatting in 10-20 international electrode placement system. INTERPRETATION: The patient was noted to be in awake and drowsy states during this EEG. Resting awake background rhythm consisted of well-formed posterior dominant rhythm with anterior/posterior gradient comprising of 10 Hz alpha activity measuring 15-40 microvolts in amplitude which was symmetric and reactive to eye opening. Attenuation of posterior dominant rhythm was seen during transition into drowsiness. No sleep was achieved. Hyperventilation with good effort elicited mild theta slowing of background rhythm. Photic stimulation at 3-30 Hz elicited symmetric photic driving, especially at mid frequencies bilaterally. No focal, lateralizing or epileptiform abnormalities were seen. No relevant clinical activity was noted. EKG revealed normal sinus rhythm. CONCLUSION: This EEG in awake and drowsy states is within normal limits.
== END ==
LOC: M SLEEP 08:08
PROVIDERS: ATTEND Family Medicine
DX: G25.3 Myoclonus (principal)

== ENCOUNTER → 2020-05-04 | Outpatient (CLI) | payer OTHER ==
[~2020-05-04] MED LIST changes: -GABA-282 PO; +GABA-843 PO; +GLYB5TA PO; -GLYB5TAB6 PO
--- NOTE | 2020-05-11 14:18 | SLEEPCENT ---
DATE: 05/04/2020 ORDERED BY: FAUSTO Gonzales Nocturnal polysomnography was performed for evaluation of sleep physiology in this patient with a history of extensive somnolence and nonrestorative sleep. There was 8 hours and 58 minutes of data reviewed. There were 406.5 minutes of sleep identified. Sleep latency was prolonged at 53.5 minutes. REM latency was prolonged at 136.5 minutes. Sleep architecture showed fragmentation. There were 2 REM cycles noted. Overall sleep efficiency was 77.1%. The electrocardiogram showed a sinus rhythm with an average heart rate of 64 beats per minute. EEG showed normal waveforms for wake and sleep. There were 79 respiratory events identified of 10 seconds in duration or greater for an apnea-hypopnea index of 11.7. The events were primarily obstructive, not exclusive to sleep stage nor body posture. Arousals from respiratory events occurred 12 times per hour, and oxygen desaturations were seen below 90%. There was minimal limb activity appreciated. IMPRESSION: Obstructive sleep apnea syndrome (G47.33). Apnea-hypopnea index is 11.7. RECOMMENDATION: The patient should be encouraged to return to the sleep disorder center for pressure therapy. In the interim, alcohol and sedative avoidance should be practiced and caution exercised during the operation of motor vehicles. DEE DEED
== END ==
LOC: M SLEEP 20:00
PROVIDERS: ATTEND Nurse Practitioner Family
DX: G47.33 Obstructive sleep apnea (adult) (pediatric) (principal)

== ENCOUNTER → 2020-08-03 | Outpatient (CLI) | payer SELFPAY | LOC: M LABSMTC 14:50 | PROVIDERS: ATTEND Pediatrics | DX: Z20.828 Contact with and (suspected) exposure to other viral communicable diseases (principal) ==

== ENCOUNTER → 2020-08-08 | Outpatient (CLI) | payer OTHER ==
[2020-08-08 13:53] LABS: BASO # 0.1 10^3/uL (0.0-0.2); BASO % 0.9 % (0.0-1.0); EOS # 0.2 10^3/uL (0.0-0.5); EOS % 2.2 % (0.0-3.0); HEMATOCRIT 44.1 % (42.0-52.0); LYMPH # 1.9 10^3/uL (1.5-5.0); MEAN CORPUSCULAR HEMOGLOBIN 30.4 pg (27.0-33.0); MEAN CORPUSCULAR VOLUME 89.5 fl (80.0-96.0); MONO # 0.5 10^3/uL (0.0-0.8); MONO % 7.8 % (0.0-5.0); NEUTROPHILS # 4.1 10^3/uL (1.5-8.5); NEUTROPHILS % 60.8 % (36.0-66.0); PLATELET COUNT, AUTOMATED 233 10^3/uL (150-450); RED BLOOD COUNT 4.93 10^6/uL (4.30-6.10); WHITE BLOOD COUNT 6.7 10^3/uL (4.0-10.0)
[2020-08-08 14:03] LABS: INR 0.99; PROTHROMBIN TIME 13.3 SECONDS (12.5-14.3)
[2020-08-08 14:04] LABS: PARTIAL THROMBOPLASTIN TIME 27.1 SECONDS (24.2-38.5)
[2020-08-08 14:15] LABS: HEMOGLOBIN A1c 8.5 %
[2020-08-08 14:25] LABS: CHOLESTEROL LEVEL 147 MG/DL (<200); FERRITIN 59 NG/ML (26-388); HDL CHOLESTEROL 35 MG/DL (>40); IRON (FE) 128 UG/DL (65-175); LDL CHOLESTEROL 94 MG/DL (<100); NON-HDL-C 112 MG/DL; PERCENT SATURATION 39.9 % (19.7-50.0); TOTAL IRON BINDING CAPACITY 321 UG/DL (250-450); TRIGLYCERIDES LEVEL 89 MG/DL (<150)
[2020-08-08 14:31] LABS: TOTAL 25(OH) VITAMIN D 126.6 NG/ML (30.0-100.0)
[2020-08-11 06:08] LABS: INSULIN LEVEL 29.9 uIU/mL (2.6-24.9)
== END ==
LOC: M PLALAB 09:54
PROVIDERS: ATTEND Family Medicine
DX: E11.9 Type 2 diabetes mellitus without complications (principal); E55.9 Vitamin D deficiency, unspecified; E83.110 Hereditary hemochromatosis

== ENCOUNTER → 2020-09-04 | Outpatient (CLI) | payer OTHER ==
--- NOTE | 2020-09-04 09:25 | REP ---
INDICATION: HEREDITARY HEMOCHROMATOSIS COMPARISON: 12/27/2018 TECHNIQUE: Real time B-mode carney scale ultrasound examination using curved array transducer. FINDINGS: Liver demonstrates coarsened mildly hyperechoic echotexture similar to prior examination and without focal hepatic lesion identified. Pancreas is incompletely evaluated due to interposed bowel gas but visualized portions appear normal. The spleen is unremarkable and measures 12 x 7 x 5 cm. Gallbladder demonstrates multiple gallstones without wall thickening or pericholecystic fluid. No biliary ductal dilatation is appreciated and the common bile duct measures 3.8 mm diameter. The bilateral kidneys are normal in reniform shape without hydronephrosis. Right kidney measures 11.6 x 5.8 x 6.6 cm. Left kidney measures 12.0 x 5.6 x 6.7 cm. The abdominal aorta appears normal and measures 2.8 cm maximal diameter. No ascites noted in the visualized abdomen. IMPRESSION: 1. Hepatocellular disease and hepatosteatosis without focal hepatic lesion identified. 2. Cholelithiasis. <Electronically signed by Jeremie Dooley > 09/04/20 0921
== END ==
LOC: M RAD 08:07
PROVIDERS: ATTEND Family Medicine
DX: E83.110 Hereditary hemochromatosis (principal); K76.0 Fatty (change of) liver, not elsewhere classified; K80.20 Calculus of gallbladder without cholecystitis without obstruction

== ENCOUNTER → 2020-10-17 | Outpatient (CLI) | payer OTHER ==
[~2020-10-17] MED LIST changes: +GABA-282 PO; -GABA-843 PO; -GLYB5TA PO; +GLYB5TAB6 PO; +PROHANCE 279.3MG/ML 15ML VIAL As Ordered ONE; +PROHANCE 279.3MG/ML 5ML VIAL As Ordered ONE
--- NOTE | 2020-10-17 09:52 | REP ---
INDICATION: MIGRAINE. Chronic migraine. COMPARISON: Comparison MRI study October 05, 2019.. TECHNIQUE: Axial and sagittal imaging planes are utilized for T1 and T2-weighted scans. Sequences include spin-echo, fast spin echo, FLAIR, and diffusion weighted sequences. 20 mL of intravenous ProHance is administered and postcontrast axial T1, sagittal T1, and coronal T1 weighted images are obtained. FINDINGS: No bony calvarial lesion is seen. Craniocervical junction upper cervical cord are unremarkable. There are small mucous retention cysts in the maxillary sinuses bilaterally and there are some mucosal changes in the ethmoid air cells bilaterally. These findings are similar to the prior study. No intraorbital abnormality is seen. Diffusion-weighted scans show no evidence of restricted diffusion to suggest acute ischemia. Hunter-white differentiation pattern is intact. Lateral, 3rd, and 4th ventricles are normal in size and position. On T2 weighted scans, there are mild scattered subcortical foci of T2 hyperintensity. These are nonspecific. Most likely they represent small-vessel micro ischemic changes. The can be seen in association with migraine as well. Demyelinating disease is felt to be unlikely given the pattern. These are unchanged from the October 05, 2019 study. There is no evidence of intracranial mass lesion. There is no evidence of hemorrhage infarct or extra-axial fluid collection. No midline shift is seen. Postcontrast images show enhancement of normal vascular structures. No abnormal intracranial contrast enhancement is seen. IMPRESSION: Mild stable small-vessel changes. Mild paranasal sinus mucosal changes again seen. No acute intracranial abnormality. <Electronically signed by Arjun Lange > 10/17/20 0948
== END ==
LOC: M RAD 07:50
DX: G43.709 Chronic migraine without aura, not intractable, without status migrainosus (principal)
CPT/HCPCS: 70553; A9576

== ENCOUNTER → 2020-11-07 | Outpatient (CLI) | payer OTHER ==
[~2020-11-07] MED LIST changes: -PROHANCE 279.3MG/ML 15ML VIAL As Ordered ONE; -PROHANCE 279.3MG/ML 5ML VIAL As Ordered ONE
--- NOTE | 2020-11-07 17:21 | REP ---
INDICATION: VISION LOSS COMPARISON: None. TECHNIQUE: Real-time ultrasound evaluation and duplex Doppler interrogation of the extracranial carotid vasculature is performed. FINDINGS: Antegrade flow is observed in both vertebral arteries. Right carotid: Right common carotid artery is unremarkable. There is no significant plaquing in the bulb, proximal ICA, or proximal ECA on two-dimensional scanning. Color flow and spectral Doppler interrogation are unremarkable on the right.. Velocity chart right carotid: Right CCA PSV: 116 cm/S Right ICA PSV: 71 cm/S Right ICA EDV: 21 cm/S Right ECA PSV: 102 cm/S Right ICA/CCA ratio: 0.6 Left carotid: The left common carotid artery is unremarkable. There is no significant plaquing in the bulb, proximal ICA, or proximal ECA on the left side on two-dimensional scanning. Color flow and spectral Doppler interrogation are unremarkable on the left. Velocity chart left carotid: Left CCA PSV: 129 cm/S Left ICA PSV: 80 cm/S Left ICA EDV: 17 cm/S Left ECA PSV: 83 cm/S Left ICA/CCA ratio: 0.6 IMPRESSION: Less than 50% category narrowing in the right internal carotid artery by Doppler velocity criteria. No significant plaquing seen. Less than 50% category narrowing in the left ICA by Doppler velocity criteria. No significant plaquing seen. <Electronically signed by Arjun Lange > 11/07/20 1606
== END ==
LOC: M RAD 16:34
PROVIDERS: ATTEND Ophthalmology
DX: H53.8 Other visual disturbances (principal)

== ENCOUNTER → 2020-11-16 | Outpatient (CLI) | payer OTHER ==
[~2020-11-16] MED LIST changes: +ISOVUE-300 61% 50ML VIAL As Ordered ONE
[2020-11-16 14:55] LABS: APPEARANCE, CSF CLEAR (CLEAR); COLOR, CSF COLORLESS (COLORLESS); CSF TUBE# CELL CNT TUBE 1
[2020-11-16 15:24] LABS: CSF TUBE# GLU TUBE 1; CSF TUBE# TP TUBE 1; GLUCOSE CSF 102 MG/DL (40-75); TOTAL PROTEIN,CSF 40 MG/DL (15-45)
[2020-11-16 16:25] VITALS: BP 122/24
--- NOTE | 2020-11-16 16:32 | REP ---
PROCEDURE NAME: FLUORO GUID FOR NEEDLE PLACEMT SEDATION: None CLINICAL INFORMATION: WHITE MATTER DX, R/O MS. PHYSICIAN: Shreya Fisher PROCEDURE DESCRIPTION: The procedure was performed by JAZMYNE Julio, under the direct supervision of Dr. Lange. The risks and benefits of the procedure were explained to the patient and an informed consent was obtained both verbally and written. Directly prior to the start of the procedure a formal time-out was completed in the procedure room. The L3-4 interspace was localized using fluoroscopic guidance. The skin was prepped and draped in a sterile fashion. Five 1 % lidocaine 10 milligrams/milliliter was used as a local anesthetic. Using fluoroscopic guidance a 22 gauge spinal needle was inserted and advanced without significant difficulty in to the cerebral spinal space at the L3-4 interspinous level. Clear freely flowing cerebral spinal fluid was retrieved. The initial opening pressure was normal measured by manometry at 13 cm of water. A total of 12 mL of cerebral spinal fluid was withdrawn gently and sent to the lab for routine analysis. 0.1 minutes of fluoroscopy time was utilized for this procedure. Some fluoroscopic images are performed with last image hold technology. These images require no additional radiation. The patient tolerated the procedure well and there were no immediate complications. After the appropriate amount of monitored chondral assist the patient was discharged back to the unit. ESTIMATED BLOOD LOSS: Less than 1 mL COMPLICATIONS: None CONCLUSION: Fluoroscopic guided lumbar puncture and CSF retrieval. <Electronically signed by Shreya Fisher > 11/16/20 1789 <Electronically signed by Arjun Lange > 11/16/20 1970
[2020-11-21 15:07] LABS: IMMUNOGLOBULIN G CSF 1.7 mg/dL (0.0-8.6)
== END ==
LOC: M IRPRO 12:19
PROVIDERS: ATTEND Family Medicine
DX: R90.82 White matter disease, unspecified (principal)

== ENCOUNTER → 2021-02-27 | Outpatient (CLI) | payer OTHER ==
[~2021-02-27] MED LIST changes: -ISOVUE-300 61% 50ML VIAL As Ordered ONE
[2021-02-27 11:14] LABS: HEMOGLOBIN A1c 6.7 %
[2021-02-27 11:17] LABS: ALBUMIN 4.1 GM/DL (3.2-5.2); ALT/SGPT 97 U/L (12-78); BILIRUBIN,TOTAL 1.2 MG/DL (0.2-1.0); BLOOD UREA NITROGEN 18 MG/DL (7-18); CARBON DIOXIDE LEVEL 29 MEQ/L (21-32); CHLORIDE LEVEL 101 MEQ/L (98-107); CREATININE FOR GFR 0.88 MG/DL (0.70-1.30); GLOMERULAR FILTRATION RATE > 60.0 (>56); GLUCOSE, FASTING 134 MG/DL (70-100); NT-PRO BNP 8 PG/ML (<125); POTASSIUM SERUM 3.8 MEQ/L (3.5-5.1); SODIUM LEVEL 139 MEQ/L (136-145); TOTAL PROTEIN 7.8 GM/DL (6.4-8.2)
[2021-02-27 11:18] LABS: MAGNESIUM LEVEL 2.3 MG/DL (1.8-2.4)
[2021-02-27 11:20] LABS: PTH INTACT 36.9 PG/ML (18.5-88.0); TOTAL 25(OH) VITAMIN D 58.7 NG/ML (30.0-100.0)
[2021-02-27 11:34] LABS: HEPATITIS B SURFACE ANTIGEN NEGATIVE (NEGATIVE)
[2021-02-27 11:59] LABS: HEPATITIS C VIRUS ABY INDEX < 0.0 INDEX (<0.8)
[2021-02-28 21:07] LABS: ANA (HEP2) Negative (.); ANTI-MITOCHONDRIAL ANTIBODY <20.0 Units (0.0-20.0); INSULIN LEVEL 37.2 uIU/mL (2.6-24.9)
== END ==
LOC: M PLALAB 08:07
PROVIDERS: ATTEND Family Medicine
DX: E83.110 Hereditary hemochromatosis (principal)

== ENCOUNTER 2021-03-02 21:14 | Emergency (ER) | payer OTHER ==
[~2021-03-02] VITALS: Ht 170.2 cm; Wt 105.9 kg
[2021-03-02 21:15] VITALS: BP 128/71
[2021-03-02] MEDS ORDERED: VITATAB73 PO (21:32)
[2021-03-02] MEDS ORDERED: BACL10TA2 PO (21:32)
[2021-03-02] MEDS ORDERED: CINN500C12 PO (21:32)
[2021-03-02] MEDS ORDERED: BUPR300T92 PO (21:32)
[2021-03-02] MEDS ORDERED: STEG15TA PO (21:32)
[2021-03-02 22:29] LABS: BASO % 0.3 % (0.0-1.0); EOS # 0.1 10^3/uL (0.0-0.5); EOS % 0.6 % (0.0-3.0); HEMATOCRIT 43.5 % (42.0-52.0); HEMOGLOBIN 14.4 g/dl (13.5-17.5); LYMPH # 1.2 10^3/uL (1.5-5.0); LYMPH % 12.5 % (24.0-44.0); MEAN CORPUSCULAR HEMOGLOBIN 30.4 pg (27.0-33.0); MEAN CORPUSCULAR HGB CONC 33.1 g/dl (32.0-36.5); MEAN CORPUSCULAR VOLUME 91.8 fl (80.0-96.0); MONO % 10.5 % (2.0-8.0); NEUTROPHILS # 7.4 10^3/uL (1.5-8.5); NEUTROPHILS % 75.9 % (36.0-66.0); PLATELET COUNT, AUTOMATED 189 10^3/uL (150-450); RED BLOOD COUNT 4.74 10^6/uL (4.30-6.10); WHITE BLOOD COUNT 9.7 10^3/uL (4.0-10.0)
[2021-03-02 22:46] LABS: ERYTHROCYTE SEDIMENTATION RATE 24 mm/hr (0-20)
[2021-03-02 22:51] LABS: BLOOD UREA NITROGEN 25 MG/DL (7-18); C REACTIVE PROTEIN QUANTITATIV 2.31 MG/DL (0.00-0.30); CALCIUM LEVEL 9.2 MG/DL (8.5-10.1); CARBON DIOXIDE LEVEL 30 MEQ/L (21-32); CHLORIDE LEVEL 101 MEQ/L (98-107); CREATININE FOR GFR 1.11 MG/DL (0.70-1.30); GLOMERULAR FILTRATION RATE > 60.0 (>56); GLUCOSE, FASTING 203 MG/DL (70-100); POTASSIUM SERUM 3.9 MEQ/L (3.5-5.1); SODIUM LEVEL 136 MEQ/L (136-145)
[2021-03-03] MEDS ORDERED: DOXYCYCLINE HYCLATE 100MG TABLET PO ONE (00:10)
[2021-03-03] MEDS ORDERED: DOXY1CAP62 PO (00:12)
[2021-03-05 17:09] LABS: Lyme Disease IgG/IgM Antibodie <0.91 ISR (0.00-0.90); Lyme Disease IgM Ab Quantitati <0.80 index (0.00-0.79)
== END 2021-03-03 00:40 | disposition home or self-care (01) ==
LOC: M ED 21:14
DX: S80.862A Insect bite (nonvenomous), left lower leg, initial encounter (principal); W57.XXXA Bitten or stung by nonvenomous insect and other nonvenomous arthropods, initial encounter; Y92.9 Unspecified place or not applicable; Y93.9 Activity, unspecified; Y99.9 Unspecified external cause status; R50.9 Fever, unspecified; R51.9 Headache, unspecified; E11.9 Type 2 diabetes mellitus without complications; E78.5 Hyperlipidemia, unspecified; I10 Essential (primary) hypertension; G47.33 Obstructive sleep apnea (adult) (pediatric); F33.9 Major depressive disorder, recurrent, unspecified; Z88.1 Allergy status to other antibiotic agents; Z79.899 Other long term (current) drug therapy

== ENCOUNTER → 2021-06-28 | Outpatient (CLI) | payer OTHER ==
[~2021-06-28] MED LIST changes: +BACL10TA2 PO; +BUPR300T92 PO; +CINN500C12 PO; +DOXY-443 PO; -MAGN400T3 PO; +MAGN400T33 PO; +STEG15TA PO; +VITATAB73 PO
--- NOTE | 2021-06-28 16:14 | REP ---
INDICATION: LUMBAR SPONDYLOSIS. COMPARISON: None. TECHNIQUE: Five views FINDINGS: Minimal marginal osteophytosis is seen bilaterally T12-L1 and L1-2. Similar findings are seen at L3-4 and on the left at L2-3. The pedicles are intact bilaterally. There is no evidence of spondylolysis or spondylolisthesis. Vertebral body height is within normal limits. There is anterior lipping at every level. There is moderate disc space narrowing at every level particularly at L2-3. Degenerative facet joint changes are present at every level bilaterally particularly L3-4 through L5-S1. The AP view shows cholelithiasis. IMPRESSION: Chronic changes as described above. <Electronically signed by Morro Miranda > 06/28/21 [id number]
== END ==
LOC: M PLAIMG 15:11
PROVIDERS: ATTEND Family Medicine
DX: M47.816 Spondylosis without myelopathy or radiculopathy, lumbar region (principal)

== ENCOUNTER 2021-08-01 16:00 | Outpatient (RCR) | payer OTHER | END 2021-08-30 | LOC: M PT 16:00 | PROVIDERS: ATTEND Family Medicine | DX: M47.816 Spondylosis without myelopathy or radiculopathy, lumbar region (principal) ==

== ENCOUNTER → 2021-11-12 | Outpatient (CLI) | payer OTHER ==
[~2021-11-12] MED LIST changes: -LISI20TA20 PO; +LISI20TA37 PO; -MOME50SP; +NASO50SP3
[2021-11-12 11:05] LABS: INR 0.95; PROTHROMBIN TIME 13.1 SECONDS (12.7-14.5)
[2021-11-12 11:06] LABS: PARTIAL THROMBOPLASTIN TIME 26.8 SECONDS (25.9-37.0)
[2021-11-12 11:36] LABS: ALBUMIN 4.2 GM/DL (3.2-5.2); ALT/SGPT 86 U/L (12-78); BILIRUBIN,TOTAL 1.2 MG/DL (0.2-1.0); BLOOD UREA NITROGEN 18 MG/DL (7-18); CALCIUM LEVEL 9.8 MG/DL (8.5-10.1); CARBON DIOXIDE LEVEL 33 MEQ/L (21-32); CHLORIDE LEVEL 101 MEQ/L (98-107); CHOLESTEROL LEVEL 276 MG/DL (<200); CHOLESTEROL RISK RATIO 5.411 (<5); CREATININE FOR GFR 0.93 MG/DL (0.70-1.30); FERRITIN 34 NG/ML (26-388); GLOMERULAR FILTRATION RATE > 60.0 (>56); GLUCOSE, FASTING 146 MG/DL (70-100); HDL CHOLESTEROL 51 MG/DL (>40); LDL CHOLESTEROL 195 MG/DL (<100); NON-HDL-C 225 MG/DL; NT-PRO BNP < 5 PG/ML (<125); SODIUM LEVEL 139 MEQ/L (136-145); TOTAL PROTEIN 7.3 GM/DL (6.4-8.2); TRIGLYCERIDES LEVEL 149 MG/DL (<150)
[2021-11-12 11:49] LABS: HEMOGLOBIN A1c 6.6 %
== END ==
LOC: M LAB 08:44
PROVIDERS: ATTEND Family Medicine
DX: I10 Essential (primary) hypertension (principal); E83.110 Hereditary hemochromatosis; E11.9 Type 2 diabetes mellitus without complications

== ENCOUNTER → 2022-04-16 | Outpatient (CLI) | payer OTHER ==
[2022-04-16 15:30] LABS: BASO % 0.6 % (0.0-1.0); EOS # 0.3 10^3/uL (0.0-0.5); EOS % 3.9 % (0.0-3.0); HEMATOCRIT 48.9 % (42.0-52.0); HEMOGLOBIN 16.1 g/dl (13.5-17.5); LYMPH # 1.4 10^3/uL (1.5-5.0); LYMPH % 22.3 % (24.0-44.0); MEAN CORPUSCULAR HEMOGLOBIN 31.5 pg (27.0-33.0); MEAN CORPUSCULAR HGB CONC 32.9 g/dl (32.0-36.5); MEAN CORPUSCULAR VOLUME 95.7 fl (80.0-96.0); MONO # 0.5 10^3/uL (0.0-0.8); MONO % 7.6 % (2.0-8.0); NEUTROPHILS # 4.2 10^3/uL (1.5-8.5); NEUTROPHILS % 65.4 % (36.0-66.0); PLATELET COUNT, AUTOMATED 210 10^3/uL (150-450); RED BLOOD COUNT 5.11 10^6/uL (4.30-6.10); WHITE BLOOD COUNT 6.5 10^3/uL (4.0-10.0)
[2022-04-16 15:53] LABS: HEMOGLOBIN A1c 6.9 %
[2022-04-16 17:04] LABS: CREATININE, URINE 26.3 MG/DL; MALB URINE SIEMENS < 5.0 MG/L
[2022-04-16 17:05] LABS: ALBUMIN 3.9 GM/DL (3.2-5.2); ALT/SGPT 74 U/L (12-78); BILIRUBIN,TOTAL 0.9 MG/DL (0.2-1.0); BLOOD UREA NITROGEN 18 MG/DL (7-18); CALCIUM LEVEL 9.9 MG/DL (8.5-10.1); CARBON DIOXIDE LEVEL 29 MEQ/L (21-32); CHLORIDE LEVEL 104 MEQ/L (98-107); CHOLESTEROL LEVEL 183 MG/DL (<200); CHOLESTEROL RISK RATIO 3.588 (<5); FREE T4 0.89 NG/DL (0.76-1.46); GLOMERULAR FILTRATION RATE > 60.0 (>56); GLUCOSE, FASTING 200 MG/DL (70-100); HDL CHOLESTEROL 51 MG/DL (>40); LDL CHOLESTEROL 113 MG/DL (<100); NON-HDL-C 132 MG/DL; POTASSIUM SERUM 4.8 MEQ/L (3.5-5.1); SODIUM LEVEL 137 MEQ/L (136-145); TOTAL PROTEIN 7.2 GM/DL (6.4-8.2); TRIGLYCERIDES LEVEL 96 MG/DL (<150)
== END ==
LOC: M PLALAB 09:19
PROVIDERS: ATTEND Nurse Practitioner Family
DX: E11.9 Type 2 diabetes mellitus without complications (principal); I10 Essential (primary) hypertension; E78.2 Mixed hyperlipidemia

== ENCOUNTER → 2022-05-01 | Outpatient (CLI) | payer OTHER | LOC: M WHC 09:29 | PROVIDERS: ATTEND Family Medicine | DX: K76.0 Fatty (change of) liver, not elsewhere classified (principal); K80.20 Calculus of gallbladder without cholecystitis without obstruction ==

== ENCOUNTER → 2022-10-21 | Outpatient (CLI) | payer OTHER ==
[2022-10-21 11:20] LABS: PERCENT SATURATION 34.8 % (19.7-50.0)
== END ==
LOC: M PLALAB 08:27
PROVIDERS: ATTEND Internal Medicine Gastroenterology
DX: K75.81 Nonalcoholic steatohepatitis (NASH) (principal)

== ENCOUNTER → 2022-12-05 | Outpatient (CLI) | payer OTHER ==
[~2022-12-05] MED LIST changes: +DULA3PEN SC; +FLUT50SP17; +GLIM4TAB5 PO; +MULT-6 PO; +ROSU10TA6 PO; +VITA-256 PO
[2022-12-05 11:26] LABS: INR 0.98; PROTHROMBIN TIME 13.2 SECONDS (12.5-14.5)
[2022-12-05 11:27] LABS: PARTIAL THROMBOPLASTIN TIME 25.6 SECONDS (24.8-34.2)
[2022-12-05 11:30] LABS: HEMOGLOBIN A1c 7.4 % (4.0-6.0)
[2022-12-05 11:46] LABS: IRON (FE) 122 UG/DL (65-175)
[2022-12-05 11:47] LABS: ALBUMIN 4.2 G/DL (3.2-5.2); ALKALINE PHOSPHATASE 62 U/L (46-116); ALT/SGPT 115 U/L (7.0-40); AST/SGOT 61 U/L (<34); BILIRUBIN,TOTAL 1.6 MG/DL (0.3-1.2); BLOOD UREA NITROGEN 16 MG/DL (9-23); CALCIUM LEVEL 9.9 MG/DL (8.5-10.1); CARBON DIOXIDE LEVEL 30 MMOL/L (20-31); CHLORIDE LEVEL 100 MMOL/L (98-107); CREATININE FOR GFR 0.89 MG/DL (0.70-1.30); GLOMERULAR FILTRATION RATE > 60.0 (>56); GLUCOSE, FASTING 160 MG/DL (60-100); PERCENT SATURATION 41.5 % (19.7-50.0); POTASSIUM SERUM 4.6 MMOL/L (3.5-5.1); PTH INTACT 34.6 PG/ML (18.5-88.0); SODIUM LEVEL 138 MMOL/L (136-145); TOTAL IRON BINDING CAPACITY 294 UG/DL (250-425); TOTAL PROTEIN 7.2 G/DL (5.7-8.2)
[2022-12-05 11:49] LABS: FERRITIN 90.3 NG/ML (10.5-307.3); FREE T4 1.08 NG/DL (0.89-1.76)
[2022-12-05 11:50] LABS: THYROID STIMULATING HORMONE 1.511 uIU/ML (0.55-4.78)
[2022-12-05 11:51] LABS: TOTAL 25(OH) VITAMIN D 73.9 NG/ML (20.0-100.0)
[2022-12-09 17:09] LABS: APOLIPOPROTEIN B/A-1 RATIO 0.8 ratio (0.0-0.7)
== END ==
LOC: M PLALAB 09:10
PROVIDERS: ATTEND Family Medicine
DX: E11.9 Type 2 diabetes mellitus without complications (principal); K76.0 Fatty (change of) liver, not elsewhere classified; E78.2 Mixed hyperlipidemia; E83.110 Hereditary hemochromatosis; Z12.5 Encounter for screening for malignant neoplasm of prostate
CPT/HCPCS: 36415; 80053; 82105; 82172; 82306; 82728; 83036; 83550; 83970; 84439; 84443; 85610; 85730; G0103

== ENCOUNTER 2022-12-12 06:46 | Day surgery (SDC) | payer OTHER ==
[~2022-12-12] VITALS: Ht 172.7 cm; Wt 100.3 kg
[~2022-12-12 06:46] MED LIST changes: +NS 1,000 ML IV ONE
[2022-12-12] MEDS ORDERED: propofoL 200 MG/20 ML VIAL As Ordered ONE ×2 (06:53→07:39)
[2022-12-12] MEDS ORDERED: SIMETHICONE 40MG/0.6ML DROPS 30ML As Ordered ONE (07:11)
[2022-12-12] MEDS ORDERED: GLYCOPYRROLATE INJ 0.2 MG/ML 2 ML VIAL As Ordered ONE (07:39)
[2022-12-12 08:10] VITALS: BP 117/79
== END 2022-12-12 08:30 | disposition home or self-care (01) ==
LOC: M OPP 06:46
PROVIDERS: ATTEND Internal Medicine Gastroenterology
DX: Z12.11 Encounter for screening for malignant neoplasm of colon (principal); D12.4 Benign neoplasm of descending colon; D12.2 Benign neoplasm of ascending colon; K64.8 Other hemorrhoids; K57.30 Diverticulosis of large intestine without perforation or abscess without bleeding

== ENCOUNTER → 2023-01-08 | Outpatient (CLI) | payer OTHER ==
[~2023-01-08] MED LIST changes: -NS 1,000 ML IV ONE
== END ==
LOC: M WHC 06:41
PROVIDERS: ATTEND Family Medicine
DX: E83.110 Hereditary hemochromatosis (principal); K80.20 Calculus of gallbladder without cholecystitis without obstruction

== ENCOUNTER → 2023-05-16 | Outpatient (CLI) | payer OTHER ==
[2023-05-16 11:28] LABS: BASO # 0.1 10^3/uL (0.0-0.2); BASO % 0.8 % (0.0-1.0); EOS # 0.2 10^3/uL (0.0-0.5); EOS % 3.2 % (0.0-3.0); HEMATOCRIT 43.6 % (42.0-52.0); HEMOGLOBIN 15.1 g/dl (13.5-17.5); LYMPH # 1.7 10^3/uL (1.5-5.0); LYMPH % 27.2 % (24.0-44.0); MEAN CORPUSCULAR HEMOGLOBIN 32.1 pg (27.0-33.0); MEAN CORPUSCULAR HGB CONC 34.6 g/dl (32.0-36.5); MEAN CORPUSCULAR VOLUME 92.6 fl (80.0-96.0); MONO # 0.5 10^3/uL (0.0-0.8); MONO % 8.5 % (2.0-8.0); NEUTROPHILS # 3.7 10^3/uL (1.5-8.5); PLATELET COUNT, AUTOMATED 180 10^3/uL (150-450); RED BLOOD COUNT 4.71 10^6/uL (4.30-6.10); WHITE BLOOD COUNT 6.2 10^3/uL (4.0-10.0)
[2023-05-16 11:46] LABS: CPK CREATINE PHOSPHOKINASE 132 U/L (46-171)
[2023-05-16 11:47] LABS: ALBUMIN 3.9 G/DL (3.2-5.2); ALKALINE PHOSPHATASE 56 U/L (46-116); ALT/SGPT 88 U/L (7.0-40); AST/SGOT 37 U/L (<34); BLOOD UREA NITROGEN 21 MG/DL (9-23); CALCIUM LEVEL 8.9 MG/DL (8.5-10.1); CARBON DIOXIDE LEVEL 26 MMOL/L (20-31); CHLORIDE LEVEL 108 MMOL/L (98-107); CHOLESTEROL LEVEL 170 MG/DL (<200); CHOLESTEROL RISK RATIO 3.57 (<5); CREATININE FOR GFR 0.73 MG/DL (0.70-1.30); GLOMERULAR FILTRATION RATE > 60.0 (>56); GLUCOSE, FASTING 146 MG/DL (60-100); HDL CHOLESTEROL 47.5 MG/DL (>40); IRON (FE) 129 UG/DL (65-175); LDL CHOLESTEROL 102.9 MG/DL (<100); NON-HDL-C 122.5 MG/DL; PERCENT SATURATION 44.5 % (19.7-50.0); POTASSIUM SERUM 4.1 MMOL/L (3.5-5.1); SODIUM LEVEL 143 MMOL/L (136-145); TOTAL IRON BINDING CAPACITY 290 UG/DL (250-425); TOTAL PROTEIN 6.8 G/DL (5.7-8.2); TRIGLYCERIDES LEVEL 98 MG/DL (<150)
[2023-05-16 11:49] LABS: FERRITIN 69.8 NG/ML (10.5-307.3)
[2023-05-16 12:48] LABS: HEMOGLOBIN A1c 7.1 % (4.0-6.0)
== END ==
LOC: M LAB 10:25
PROVIDERS: ATTEND Family Medicine
DX: E11.9 Type 2 diabetes mellitus without complications (principal); E78.2 Mixed hyperlipidemia; I10 Essential (primary) hypertension; E83.110 Hereditary hemochromatosis

== ENCOUNTER → 2023-05-18 | Outpatient (REF) | payer OTHER | LOC: M SFHCPLAZ 13:29 | PROVIDERS: ATTEND Family Medicine | DX: E11.9 Type 2 diabetes mellitus without complications (principal); Z12.5 Encounter for screening for malignant neoplasm of prostate; E83.110 Hereditary hemochromatosis ==

== ENCOUNTER → 2023-08-10 | Outpatient (REF) | payer OTHER ==
[~2023-08-10] MED LIST changes: -FLUT50SP17; +FLUTISP
== END ==
LOC: M SFHCPLAZ 16:57
PROVIDERS: ATTEND Student in an Organized Health Care Education/Training Program
DX: R09.89 Other specified symptoms and signs involving the circulatory and respiratory systems (principal)

== ENCOUNTER → 2023-09-19 | Outpatient (CLI) | payer OTHER ==
[2023-09-19 11:41] LABS: ALBUMIN 4.5 G/DL (3.2-5.2); ALKALINE PHOSPHATASE 63 U/L (46-116); ALT/SGPT 164 U/L (7.0-40); AST/SGOT 99 U/L (<34); BILIRUBIN,TOTAL 1.6 MG/DL (0.3-1.2); BLOOD UREA NITROGEN 19 MG/DL (9-23); CALCIUM LEVEL 10.1 MG/DL (8.5-10.1); CARBON DIOXIDE LEVEL 31 MMOL/L (20-31); CHLORIDE LEVEL 99 MMOL/L (98-107); CREATININE FOR GFR 0.85 MG/DL (0.70-1.30); GLOMERULAR FILTRATION RATE > 60.0 (>56); GLUCOSE, FASTING 185 MG/DL (60-100); POTASSIUM SERUM 4.1 MMOL/L (3.5-5.1); PSA SCREENING 0.12 NG/ML (< 4.00); PTH INTACT 31.2 PG/ML (18.5-88.0); SODIUM LEVEL 136 MMOL/L (136-145); TOTAL PROTEIN 7.7 G/DL (5.7-8.2)
[2023-09-19 11:43] LABS: TOTAL 25(OH) VITAMIN D 57.5 NG/ML (20.0-100.0)
[2023-09-19 11:53] LABS: HEMOGLOBIN A1c 8.8 % (4.0-6.0)
== END ==
LOC: M LAB 10:36
PROVIDERS: ATTEND Family Medicine
DX: E11.9 Type 2 diabetes mellitus without complications (principal); E55.9 Vitamin D deficiency, unspecified; Z12.5 Encounter for screening for malignant neoplasm of prostate
CPT/HCPCS: 36415; 80053; 82172; 82306; 83010; 83036; 83525; 83883; 83970; G0103

== ENCOUNTER → 2023-10-21 | Outpatient (CLI) | payer OTHER | LOC: M RAD 09:06 | PROVIDERS: ATTEND Family Medicine | DX: K74.00 Hepatic fibrosis, unspecified (principal) ==

== ENCOUNTER → 2024-01-01 | Outpatient (CLI) | payer OTHER ==
[~2024-01-01] MED LIST changes: +BUPR-597 PO; -BUPR300T92 PO; +CYCL5TAB; +DOXY-323 PO; -DOXY-443 PO; +IBUP80TA; +INDO50CA91 PO; -ROSU10TA6 PO; +ROSU10TA61 PO; +ROSU20TA61; +SEMA2PEN
== END ==
LOC: M PLAIMG 14:16
PROVIDERS: ATTEND Student in an Organized Health Care Education/Training Program
DX: M54.50 Low back pain, unspecified (principal)

== ENCOUNTER 2024-01-04 11:24 | Emergency (ER) | payer OTHER ==
[~2024-01-04] VITALS: Ht 172.7 cm; Wt 98.0 kg
[~2024-01-04 11:24] MED LIST changes: -CYCL5TAB; -IBUP80TA; -INDO50CA91 PO; -ROSU20TA61; -SEMA2PEN
[2024-01-04] MEDS ORDERED: IBUP80TA (11:34)
[2024-01-04] MEDS ORDERED: ROSU20TA61 (11:34)
[2024-01-04] MEDS ORDERED: CYCL5TAB (11:34)
[2024-01-04] MEDS ORDERED: SEMA2PEN (11:34)
[2024-01-04] MEDS ORDERED: INDO50CA91 PO (14:45)
[2024-01-04 15:19] VITALS: BP 132/79; TEMP 98; O2SAT 98
== END 2024-01-04 15:22 | disposition home or self-care (01) ==
LOC: M ED 11:24
DX: M25.561 Pain in right knee (principal); M51.37 Other intervertebral disc degeneration, lumbosacral region; M54.41 Lumbago with sciatica, right side; I10 Essential (primary) hypertension; E11.9 Type 2 diabetes mellitus without complications; G47.33 Obstructive sleep apnea (adult) (pediatric); Z91.013 Allergy to seafood; Z88.1 Allergy status to other antibiotic agents; Z79.82 Long term (current) use of aspirin; Z79.811 Long term (current) use of aromatase inhibitors; Z79.4 Long term (current) use of insulin; Z79.899 Other long term (current) drug therapy

== ENCOUNTER → 2024-01-25 | Outpatient (CLI) | payer OTHER ==
[~2024-01-25] MED LIST changes: +CYCL5TAB; +IBUP80TA; +INDO50CA91 PO; +ROSU20TA61; +SEMA2PEN
[2024-01-25 12:36] LABS: HEMOGLOBIN A1c 8.7 % (4.0-6.0)
[2024-01-25 12:52] LABS: PSA SCREENING 0.08 NG/ML (< 4.00)
[2024-01-25 12:54] LABS: ALBUMIN 3.6 G/DL (3.2-5.2); ALKALINE PHOSPHATASE 66 U/L (46-116); ALT/SGPT 167 U/L (7.0-40); AST/SGOT 94 U/L (<34); BILIRUBIN,TOTAL 1.2 MG/DL (0.3-1.2); BLOOD UREA NITROGEN 19 MG/DL (9-23); CALCIUM LEVEL 8.8 MG/DL (8.5-10.1); CARBON DIOXIDE LEVEL 29 MMOL/L (20-31); CHLORIDE LEVEL 103 MMOL/L (98-107); CREATININE FOR GFR 0.67 MG/DL (0.70-1.30); GLOMERULAR FILTRATION RATE > 60.0 (>56); GLUCOSE, FASTING 190 MG/DL (60-100); SODIUM LEVEL 137 MMOL/L (136-145); TOTAL PROTEIN 6.6 G/DL (5.7-8.2)
[2024-01-25 12:55] LABS: PTH INTACT 50.6 PG/ML (18.5-88.0)
[2024-01-28 03:07] LABS: INSULIN LEVEL 14.1 uIU/mL (2.6-24.9)
== END ==
LOC: M LAB 11:24
PROVIDERS: ATTEND Family Medicine
DX: E11.9 Type 2 diabetes mellitus without complications (principal); E55.9 Vitamin D deficiency, unspecified; Z12.5 Encounter for screening for malignant neoplasm of prostate
CPT/HCPCS: 36415; 80053; 82172; 82306; 83010; 83036; 83525; 83883; 83970; G0103

== ENCOUNTER → 2024-01-26 | Outpatient (REF) | payer OTHER | LOC: M SFHCPLAZ 19:34 | PROVIDERS: ATTEND Family Medicine | DX: Z53.9 Procedure and treatment not carried out, unspecified reason (principal) ==

== ENCOUNTER → 2024-06-11 | Outpatient (CLI) | payer OTHER ==
[~2024-06-11] MED LIST changes: -DOXY-323 PO; +DOXY-441 PO; +GABA-1172 PO; -GABA-282 PO; -ROSU20TA61; +ROSU20TA86
[2024-06-11 11:10] LABS: BASO % 0.5 % (0.0-1.0); EOS # 0.2 10^3/uL (0.0-0.5); EOS % 2.9 % (0.0-3.0); HEMOGLOBIN 16.2 g/dl (13.5-17.5); LYMPH # 1.7 10^3/uL (1.5-5.0); LYMPH % 27.3 % (24.0-44.0); MEAN CORPUSCULAR HGB CONC 34.5 g/dl (32.0-36.5); MEAN CORPUSCULAR VOLUME 92.7 fl (80.0-96.0); MONO # 0.5 10^3/uL (0.0-0.8); MONO % 7.4 % (2.0-8.0); NEUTROPHILS # 3.8 10^3/uL (1.5-8.5); NEUTROPHILS % 61.6 % (36.0-66.0); PLATELET COUNT, AUTOMATED 205 10^3/uL (150-450); RED BLOOD COUNT 5.07 10^6/uL (4.30-6.10); WHITE BLOOD COUNT 6.2 10^3/uL (4.0-10.0)
[2024-06-11 11:34] LABS: INR 1.01; PARTIAL THROMBOPLASTIN TIME 26.6 SECONDS (24.8-34.2)
[2024-06-11 11:36] LABS: CREATININE, URINE 62.8 MG/DL
[2024-06-11 11:37] LABS: MALB URINE SIEMENS < 3.0 MG/L; MAU/CREAT RATIO 4.7 MCG/MG (0.0-30.0)
[2024-06-11 11:38] LABS: CHOLESTEROL LEVEL 173 MG/DL (<200); HDL CHOLESTEROL 41.1 MG/DL (>40); IRON (FE) 131 UG/DL (65-175); LDL CHOLESTEROL 111.1 MG/DL (<100); NON-HDL-C 131.9 MG/DL; PERCENT SATURATION 41.9 % (19.7-50.0); TOTAL IRON BINDING CAPACITY 313 UG/DL (250-425); TRIGLYCERIDES LEVEL 104 MG/DL (<150)
[2024-06-11 11:40] LABS: FERRITIN 120.4 NG/ML (10.5-307.3)
[2024-06-11 11:41] LABS: HEMOGLOBIN A1c 6.9 % (4.0-6.0)
== END ==
LOC: M LAB 10:30
PROVIDERS: ATTEND Family Medicine
DX: E83.110 Hereditary hemochromatosis (principal); E11.9 Type 2 diabetes mellitus without complications

== ENCOUNTER → 2024-10-12 | Outpatient (CLI) | payer OTHER ==
[~2024-10-12] MED LIST changes: -CYCL5TAB; +CYCL5TAB4
[2024-10-12 15:16] LABS: BASO # 0.1 10^3/uL (0.0-0.2); BASO % 0.9 % (0.0-1.0); EOS # 0.2 10^3/uL (0.0-0.5); EOS % 3.6 % (0.0-3.0); HEMATOCRIT 43.9 % (42.0-52.0); HEMOGLOBIN 15.1 g/dl (13.5-17.5); LYMPH # 1.5 10^3/uL (1.5-5.0); LYMPH % 28.1 % (24.0-44.0); MEAN CORPUSCULAR HEMOGLOBIN 32.1 pg (27.0-33.0); MEAN CORPUSCULAR HGB CONC 34.4 g/dl (32.0-36.5); MEAN CORPUSCULAR VOLUME 93.2 fl (80.0-96.0); MONO # 0.4 10^3/uL (0.0-0.8); MONO % 8.2 % (2.0-8.0); NEUTROPHILS # 3.1 10^3/uL (1.5-8.5); PLATELET COUNT, AUTOMATED 195 10^3/uL (150-450); RED BLOOD COUNT 4.71 10^6/uL (4.30-6.10); WHITE BLOOD COUNT 5.3 10^3/uL (4.0-10.0)
[2024-10-12 15:38] LABS: MAU/CREAT RATIO 12.3 MCG/MG (0.0-30.0)
[2024-10-12 15:47] LABS: TOTAL IRON BINDING CAPACITY 297 UG/DL (250-425)
[2024-10-12 15:48] LABS: ALBUMIN 3.9 G/DL (3.2-5.2); ALKALINE PHOSPHATASE 61 U/L (40-129); ALT/SGPT 87 U/L (7.0-40); AST/SGOT 48 U/L (<34); BILIRUBIN,TOTAL 0.9 MG/DL (0.3-1.2); BLOOD UREA NITROGEN 23 MG/DL (9-23); CALCIUM LEVEL 9.4 MG/DL (8.5-10.1); CARBON DIOXIDE LEVEL 29 MMOL/L (20-31); CHLORIDE LEVEL 97 MMOL/L (98-107); CREATININE FOR GFR 0.69 MG/DL (0.70-1.30); GLOMERULAR FILTRATION RATE > 60.0 (>56); GLUCOSE, FASTING 241 MG/DL (60-100); POTASSIUM SERUM 3.9 MMOL/L (3.5-5.1); PSA SCREENING 0.08 NG/ML (< 4.00); SODIUM LEVEL 137 MMOL/L (136-145); TOTAL PROTEIN 7.2 G/DL (5.7-8.2)
[2024-10-12 15:49] LABS: FERRITIN 148.6 NG/ML (10.5-307.3); IRON (FE) 146 UG/DL (65-175); PERCENT SATURATION 49.2 % (19.7-50.0); TOTAL 25(OH) VITAMIN D 61.8 NG/ML (20.0-100.0)
[2024-10-12 16:05] LABS: HEMOGLOBIN A1c 8.6 % (4.0-6.0)
== END ==
LOC: M PLALAB 09:09
PROVIDERS: ATTEND Family Medicine
DX: E11.9 Type 2 diabetes mellitus without complications (principal); E83.110 Hereditary hemochromatosis; Z12.5 Encounter for screening for malignant neoplasm of prostate
CPT/HCPCS: 36415; 80053; 82043; 82306; 82728; 83036; 83550; 83970; 85025; G0103

== ENCOUNTER → 2024-11-08 | Outpatient (CLI) | payer OTHER | LOC: M RAD 07:17 | PROVIDERS: ATTEND Family Medicine | DX: Z00.00 Encounter for general adult medical examination without abnormal findings (principal); K74.00 Hepatic fibrosis, unspecified; K80.20 Calculus of gallbladder without cholecystitis without obstruction; K76.0 Fatty (change of) liver, not elsewhere classified ==

== ENCOUNTER → 2025-04-19 | Outpatient (CLI) | payer OTHER ==
[~2025-04-19] MED LIST changes: -BUPR-597 PO; +BUPR-766 PO
[2025-04-19 12:04] LABS: BASO # 0.1 10^3/uL (0.0-0.2); BASO % 0.8 % (0.0-1.0); EOS # 0.3 10^3/uL (0.0-0.5); EOS % 5.0 % (0.0-3.0); LYMPH # 1.5 10^3/uL (1.5-5.0); LYMPH % 24.1 % (24.0-44.0); MONO # 0.5 10^3/uL (0.0-0.8); MONO % 8.5 % (2.0-8.0); NEUTROPHILS # 3.8 10^3/uL (1.5-8.5); NEUTROPHILS % 61.4 % (36.0-66.0); PLATELET COUNT, AUTOMATED 201 10^3/uL (150-450)
[2025-04-19 12:16] LABS: ESTIMATED AVERAGE GLUCOSE 183.0 MG/DL (60-110)
[2025-04-19 12:26] LABS: ALT/SGPT 82 U/L (7.0-40); AST/SGOT 41 U/L (<34); CALCIUM LEVEL 9.9 MG/DL (8.5-10.1); CARBON DIOXIDE LEVEL 30 MMOL/L (20-31); CHLORIDE LEVEL 100 MMOL/L (98-107); CHOLESTEROL LEVEL 180 MG/DL (<200); CHOLESTEROL RISK RATIO 3.68 (<5); CREATININE FOR GFR 0.83 MG/DL (0.70-1.30); GLOMERULAR FILTRATION RATE > 90.0 (>56); IRON (FE) 142 UG/DL (65-175); LDL CHOLESTEROL 109.6 MG/DL (<100); MAGNESIUM LEVEL 1.8 MG/DL (1.8-2.4); NON-HDL-C 131.2 MG/DL; PERCENT SATURATION 45.2 % (19.7-50.0); POTASSIUM SERUM 4.2 MMOL/L (3.5-5.1); SODIUM LEVEL 141 MMOL/L (136-145); TRIGLYCERIDES LEVEL 108 MG/DL (<150)
[2025-04-19 12:28] LABS: VITAMIN B12 LEVEL 1886 PG/ML (211-911)
== END ==
LOC: M LAB 09:28
PROVIDERS: ATTEND Family Medicine
DX: E83.110 Hereditary hemochromatosis (principal); E55.9 Vitamin D deficiency, unspecified; I10 Essential (primary) hypertension; E11.9 Type 2 diabetes mellitus without complications; E78.2 Mixed hyperlipidemia

== ENCOUNTER → 2025-08-19 | Outpatient (CLI) | payer OTHER ==
[~2025-08-19] MED LIST changes: -ROSU10TA61 PO; +ROSU10TA90 PO
[2025-08-19 11:08] LABS: BASO # 0.1 10^3/uL (0.0-0.2); BASO % 0.9 % (0.0-1.0); EOS # 0.2 10^3/uL (0.0-0.5); EOS % 2.8 % (0.0-3.0); LYMPH # 1.2 10^3/uL (1.5-5.0); LYMPH % 21.6 % (24.0-44.0); MONO # 0.4 10^3/uL (0.0-0.8); MONO % 7.2 % (2.0-8.0); NEUTROPHILS # 3.8 10^3/uL (1.5-8.5); NEUTROPHILS % 67.1 % (36.0-66.0); PLATELET COUNT, AUTOMATED 211 10^3/uL (150-450)
[2025-08-19 11:30] LABS: PSA SCREENING 0.12 NG/ML (< 4.00)
[2025-08-19 11:34] LABS: INR 0.91; IRON (FE) 123 UG/DL (65-175)
[2025-08-19 11:35] LABS: ALT/SGPT 72 U/L (7.0-40); AST/SGOT 40 U/L (<34); CALCIUM LEVEL 9.3 MG/DL (8.5-10.1); CARBON DIOXIDE LEVEL 29 MMOL/L (20-31); CHLORIDE LEVEL 101 MMOL/L (98-107); CHOLESTEROL LEVEL 151 MG/DL (<200); CHOLESTEROL RISK RATIO 3.69 (<5); CREATININE FOR GFR 0.81 MG/DL (0.70-1.30); GLOMERULAR FILTRATION RATE > 90.0 (>56); LDL CHOLESTEROL 88.1 MG/DL (<100); MAGNESIUM LEVEL 1.8 MG/DL (1.8-2.4); NON-HDL-C 110.1 MG/DL; PERCENT SATURATION 40.6 % (19.7-50.0); POTASSIUM SERUM 3.8 MMOL/L (3.5-5.1); PTH INTACT 33.0 PG/ML (18.5-88.0); SODIUM LEVEL 138 MMOL/L (136-145); TRIGLYCERIDES LEVEL 110 MG/DL (<150); VITAMIN B12 LEVEL 795 PG/ML (211-911)
[2025-08-19 11:37] LABS: TOTAL 25(OH) VITAMIN D 48.5 NG/ML (20.0-100.0)
[2025-08-19 11:42] LABS: ESTIMATED AVERAGE GLUCOSE 151.0 MG/DL (60-110)
[2025-08-20 14:14] LABS: CREATININE, URINE 69.0 MG/DL
[2025-08-20 14:15] LABS: MALB URINE SIEMENS 4.0 MG/L; MAU/CREAT RATIO 5.7 MCG/MG (0.0-30.0)
== END ==
LOC: M LAB 09:40
PROVIDERS: ATTEND Family Medicine
DX: Z00.00 Encounter for general adult medical examination without abnormal findings (principal); E11.9 Type 2 diabetes mellitus without complications; K74.00 Hepatic fibrosis, unspecified; E66.9 Obesity, unspecified; E80.4 Gilbert syndrome; E78.2 Mixed hyperlipidemia; M17.0 Bilateral primary osteoarthritis of knee; E55.9 Vitamin D deficiency, unspecified; M47.816 Spondylosis without myelopathy or radiculopathy, lumbar region; F44.4 Conversion disorder with motor symptom or deficit; J32.9 Chronic sinusitis, unspecified; F32.9 Major depressive disorder, single episode, unspecified; Z12.5 Encounter for screening for malignant neoplasm of prostate; Z79.82 Long term (current) use of aspirin
CPT/HCPCS: 36415; 80053; 80061; 81517; 82043; 82105; 82306; 82607; 82728; 83036; 83550; 83735; 83880; 83970; 85025; 85610; 85730; G0103